=== PATIENT | male | born 2000 | race African-American/Black ===

== ENCOUNTER 2024-11-13 03:03 | Emergency (ER) | payer OTHER ==
[~2024-11-13] VITALS: Ht 170.2 cm; Wt 77.3 kg
[2024-11-13 03:20] VITALS: BP 131/87; PULSE 83; RESP 18; TEMP 97.8; O2SAT 100
[2024-11-13 03:40] LABS: COVID AG,FIA SOURCE NASAL SWAB
[2024-11-13 03:51] LABS: RAPID GROUP A STREP NEGATIVE (NEGATIVE)
[2024-11-13 04:06] LABS: INFLUENZA TYPE A NEGATIVE FOR TYPE A (NEGATIVE); INFLUENZA TYPE B NEGATIVE FOR TYPE B (NEGATIVE); SARS-COV2 (COVID) ANTIGEN,FIA Negative (Negative)
[2024-11-13] MEDS: IBUPROFEN 400 MG TABLET PO ONE (04:44)
[2024-11-13] MEDS: ACETAMINOPHEN 500 MG TABLET PO ONE (04:44)
[2024-11-13] MEDS: DEXAMETHASONE 4 MG TABLET PO ONE (04:48)
== END 2024-11-13 04:49 | disposition home or self-care (01) ==
LOC: EMS 03:06
DX: J02.9 Acute pharyngitis, unspecified (principal); R05.9 Cough, unspecified; F12.90 Cannabis use, unspecified, uncomplicated; F32.A Depression, unspecified; F20.9 Schizophrenia, unspecified; Z20.822 Contact with and (suspected) exposure to COVID-19
CPT/HCPCS: 99284; 87426; 87430; 87804; J8540; Z7502; Z7610

== ENCOUNTER 2024-11-15 08:29 | Emergency (ER) | payer OTHER ==
[~2024-11-15] VITALS: Ht 170.2 cm; Wt 77.3 kg
[2024-11-15 09:00] VITALS: TEMP 98.8
[2024-11-15 10:10] LABS: INFLUENZA A-RTPCR,COMBO NEGATIVE (NEGATIVE); INFLUENZA B-RTPCR,COMBO NEGATIVE (NEGATIVE); RESPIRATORY SYNCYTIAL VRS-PCR NEGATIVE (NEGATIVE); SARS COVID19 RTPCR, COMBO NEGATIVE (NEGATIVE)
[2024-11-15] MEDS ORDERED: IBUP-2492 PO (10:54)
[2024-11-15] MEDS: DEXAMETHASONE 4 MG TABLET PO ONE (11:15)
[2024-11-15 11:32] VITALS: BP 124/83; PULSE 98; RESP 16; O2SAT 100
[2024-11-16] MEDS ORDERED: AMOX-457 PO (19:50)
== END 2024-11-15 11:34 | disposition home or self-care (01) ==
LOC: EMS 08:35
DX: J02.9 Acute pharyngitis, unspecified (principal); F32.A Depression, unspecified; F20.9 Schizophrenia, unspecified; F12.90 Cannabis use, unspecified, uncomplicated; Z91.148 Patient's other noncompliance with medication regimen for other reason; Z20.822 Contact with and (suspected) exposure to COVID-19
CPT/HCPCS: 99283; 0241U; 87430; J8540

== ENCOUNTER 2024-11-16 13:36 | Emergency (ER) | payer OTHER ==
[~2024-11-16] VITALS: Ht 170.2 cm; Wt 75.0 kg
[~2024-11-16 13:36] MED LIST: IBUP-2492 PO
[2024-11-16 14:06] VITALS: BP 134/95; PULSE 93; RESP 18; TEMP 98.1; O2SAT 98
[2024-11-16 14:15] LABS: COVID AG,FIA SOURCE NASAL SWAB
[2024-11-16 14:54] LABS: SARS-COV2 (COVID) ANTIGEN,FIA Negative (Negative)
[2024-11-16 15:10] LABS: INFLUENZA TYPE A NEGATIVE FOR TYPE A (NEGATIVE); INFLUENZA TYPE B NEGATIVE FOR TYPE B (NEGATIVE)
[2024-11-16 15:11] LABS: RAPID GROUP A STREP NEGATIVE (NEGATIVE)
[2024-11-16] MEDS ORDERED: AMOX-457 PO (19:50)
[2024-11-16] MEDS: DEXAMETHASONE 4 MG TABLET PO ONE (20:17)
== END 2024-11-16 20:17 | disposition home or self-care (01) ==
LOC: EMS 13:36
DX: J02.8 Acute pharyngitis due to other specified organisms (principal); B96.89 Other specified bacterial agents as the cause of diseases classified elsewhere; F12.90 Cannabis use, unspecified, uncomplicated; Z20.822 Contact with and (suspected) exposure to COVID-19
CPT/HCPCS: 99283; 87426; 87430; 87804; J8540